=== PATIENT | female | born 2000 | race Caucasian/White ===

== ENCOUNTER 2021-03-11 17:24 | Emergency (ER) | payer OTHER ==
[2021-03-11] MEDS ORDERED: Ketorolac Tromethamine 30 MG/ML VIAL ONE (17:41)
[2021-03-11] MEDS ORDERED: Morphine 4 MG/ML VIAL ONE (17:41)
[2021-03-11] MEDS ORDERED: Boostrix 0.5 ML (Tdap) VIAL ONE (18:09)
[2021-03-11] MEDS ORDERED: ceFAZolin 2 GM/DEX 5% 100 ML BAG ONE (18:09)
[2021-03-11] MEDS ORDERED: Ketamine 50 MG/ML (10ML VIAL) ONE (18:35)
[2021-03-11] MEDS ORDERED: Lidocaine 1% w/Epinephrine 1:100K 20 ML VIAL ONE (19:04)
== END 2021-03-11 20:37 | disposition home or self-care (01) ==
LOC: ERS 17:24
DX: S31.119A Laceration without foreign body of abdominal wall, unspecified quadrant without penetration into peritoneal cavity, initial encounter (principal); W55.12XA Struck by horse, initial encounter
CPT/HCPCS: 13101; 72192; 90471; 90715; 96365; 96375; 99152; 99153; J1885; J2270

== ENCOUNTER 2021-03-13 22:51 | Emergency (ER) | payer OTHER ==
[2021-03-13] MEDS ORDERED: Lidocaine 1% w/Epinephrine 1:100K 20 ML VIAL ONE (23:03)
[2021-03-13] MEDS ORDERED: Lidocaine 4% Cream 5 GM TUBE w/ Tegaderm ONE (23:06)
== END 2021-03-13 23:41 | disposition home or self-care (01) ==
LOC: ERS 22:51
DX: Z48.817 Encounter for surgical aftercare following surgery on the skin and subcutaneous tissue (principal)
CPT/HCPCS: 99282